=== PATIENT | male | born 1925 | race Caucasian/White ===

== ENCOUNTER 2016-09-11 22:54 | Inpatient (IN) ==
--- NOTE | 2016-09-11 23:39 | Emergency Department Note ---
Fall HPI - General Chief Complaint: Fall Stated Complaint: fall Time Seen by Provider: 09/11/16 22:58 Source: patient Mode of arrival: EMS - History of Present Illness HPI Narrative: 89-year-old male seen here earlier today for referral from Dr. Marie to increased weakness. The CT scan revealed a mass in the right lung with multilple lesions to the liver, presumably metatsis. Patient wanted to go home as well as his , as they wanted to talk to Dr. Marie tomorrow concerning a hospice discussion. They both refused admission at that time But this evening he went to use the bathroom, became lightheaded and fell. He did hit his head. There was no loss of consciousness. He has a laceration to the left lateral aspect of his scalp. There is no neck pain. Patient is alert and oriented. No neurologic signs or symptoms. There is no neck pain . 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 - Related Data Home Medications Medication Instructions Recorded Confirmed Aspirin [[place] Aspirin] 81 mg PO DAILY 01/16/15 09/09/16 Bumetanide 4 mg PO BID 01/16/15 09/09/16 Calcitriol [Rocaltrol] 0.25 mcg PO DAILY 01/16/15 09/09/16 Carvedilol [Coreg] 25 mg PO BID 01/16/15 09/09/16 Formoterol Fumarate [Foradil] 12 mcg IH BID 01/16/15 09/09/16 Isosorbide Mononitrate [Isosorbide 60 mg PO BID 01/16/15 09/09/16 Mononitrate ER] Potassium Chloride 10 meq PO BID 01/16/15 09/09/16 Pravastatin [Pravachol] 40 mg PO HS 01/16/15 09/09/16 Terazosin [Hytrin] 5 mg PO DAILY 01/16/15 09/09/16 Tiotropium [place] [Spiriva] 18 mcg INH DAILY 01/16/15 09/09/16 allopurinol 300 mg tablet 300 mg PO ONCE tab 07/27/15 09/09/16 calcium citrate 250 mg 1 tab PO QDAY tab 07/27/15 09/09/16 calcium-vitamin D3 200 unit tablet cholecalciferol (vitamin D3) 2,000 2,000 unit PO QDAY 07/27/15 09/09/16 unit tablet clobetasol 0.05 % topical ointment 1 applic TOPICAL DIRECTED PRN g 07/27/15 09/09/16 finasteride 5 mg tablet 5 mg PO QDAY 07/27/15 09/09/16 folic acid PO 07/27/15 09/09/16 multivitamin capsule 1 tab-cap PO QDAY 07/27/15 09/09/16 potassium chloride ER 10 mEq 10 meq PO BID 07/27/15 09/09/16 tablet,extended release eplerenone 50 mg tablet 50 mg PO QDAY 12/01/15 09/09/16 Previous Rx's Medication Instructions Recorded clotrimazole 1 % topical cream 1 applic TOPICAL BID #24 g 07/28/15 traMADol [Ultram] 50 mg PO Q4-6HP PRN #14 tab 02/28/16 Allergies Allergy/AdvReac Type Severity Reaction Status Date / Time cefdinir Allergy Mild Rash Verified 09/11/16 11:46 Fall PMH - Past Medical History Medical history: Reports: cancer (cLL), COPD, coronary artery disease, diabetes , hyperlipidemia, hypertension, myocardial infarction, osteoporosis, renal disease, valvular heart disease, other (Diverticulitis, mitral regurgitation, gout) - Social History Alcohol use: Reports: Rarely Drug use: Reports: none Physical Exam - General Limitations: no limitations Course Vital Signs Temperature 97.6 F 09/11/16 22:55 Pulse Rate 81 09/11/16 22:55 Respiratory Rate 20 09/11/16 22:55 Blood Pressure 130/73 09/11/16 22:55 Pulse Oximetry (%) 92 09/11/16 22:55 Temperature 97.6 F 09/11/16 22:55 Pulse Rate 94 H 09/11/16 23:56 Respiratory Rate 20 09/11/16 22:55 Blood Pressure 94/56 09/11/16 23:56 Pulse Oximetry (%) 96 09/11/16 23:56 Procedures - Laceration Laceration 1 Site: scalp Side (If applicable): left Description: linear Depth: simple, single layer Local Anesthetic: lidocaine 1% Skin layer closed with: nylon Size: 5-0 Number of sutures: 5 Technique: simple, interrupted Fall - [facility] Narrative Medical decision making narrative: FAMILY IS HERE AND HAVE REQUESTED COMFORT CARE ONLY . DR HERNANDEZ CONTACTED AND PATIENT WILL BE PUT IN OBSERVATION AND COMFORT CARE - Lab Data Result diagrams: 09/11/16 23:30 Lab Results 09/11/16 09/11/16 09/11/16 Range/Units 23:30 23:30 23:30 WBC 19.9 H (4.5-11.0) K/mcL RBC 2.78 L (4.50-5.90) M/mcL Hgb 10.1 L (13.5-16.5) g/dL Hct 32.0 L (41.0-55.0) % POC Hct 35.0 L (41.0-55.0) % MCV 115.0 H (80.0-100.0) fL MCH 36.5 H (26.0-34.0) pg MCHC 31.7 (31.0-36.0) g/dL RDW 17.4 H (11.5-14.5) % Plt Count 190 (140-440) K/mcL MPV 9.8 (7.4-10.4) fL Gran % 45.5 (38.0-78.0) % Lymph % (Auto) 48.1 (15.5-49.0) % Lyman % (Auto) 3.5 (1.0-12.0) % Eos % (Auto) 2.6 (0.0-7.0) % Baso % (Auto) 0.3 (0.0-2.0) % Gran # 9.1 H (1.8-8.0) K/mcL Lymph # 9.6 H (1.5-4.8) K/mcL Lyman # 0.7 (0.1-0.9) K/mcL Eos # 0.5 (0.0-0.7) K/mcL Baso # 0.1 (0.0-0.3) K/mcL POC Sodium 137 (133-145) mmol/L POC Potassium 4.3 (3.3-5.1) mmol/L POC Chloride 96 (96-108) mmol/L POC Total CO2 29 (22-30) mmol/L POC BUN 104 H* (8-23) mg/dl POC Creatinine 2.6 H (0.7-1.2) mg/dl POC Glucose 103 (70-105) mg/dL POC WB Ioniz Calcium 1.46 H (1.16-1.32) mmol/L Troponin T 0.28 H* (0-0.03) ng/ml Disposition Clinical Impression: Lung mass, Liver mass Disposition: Xfer As Outpt/Obs ([facility]) Condition: Critical Referrals: Lupe Marie MD [Primary Care Provider] -
[2016-09-12 00:09] LABS: Basophils # (Auto) 0.1 K/mcL (0.0-0.3); Basophils % (Auto) 0.3 % (0.0-2.0); Eosinophils # (Auto) 0.5 K/mcL (0.0-0.7); Eosinophils % (Auto) 2.6 % (0.0-7.0); Granulocytes % (Auto) 45.5 % (38.0-78.0); Lymphocytes # (Auto) 9.6 K/mcL (1.5-4.8); Lymphocytes % (Auto) 48.1 % (15.5-49.0); Mean Corpuscular HGB Conc 31.7 g/dL (31.0-36.0); Mean Corpuscular Hemoglobin 36.5 pg (26.0-34.0); Monocytes # (Auto) 0.7 K/mcL (0.1-0.9); Monocytes % (Auto) 3.5 % (1.0-12.0); Platelet Count 190 K/mcL (140-440); RBC 2.78 M/mcL (4.50-5.90); Red Cell Distribution Width 17.4 % (11.5-14.5)
[2016-09-12] MEDS ORDERED: 0.9 % SODIUM CHLORIDE 1,000 ML IV ONE (00:35)
[2016-09-12] MEDS ORDERED: ONDANSETRON 4 MG/2 ML VIAL IV PRN ×2 (00:42→14:34)
--- NOTE | 2016-09-12 06:00 | Cat Scan Report ---
CLINICAL INFORMATION: Fell. Head injury. COMPARISON: 02/28/2016 TECHNIQUE: Axial noncontrast-enhanced images through the brain. FINDINGS: No acute intracranial hemorrhage. No subdural hematoma. No subarachnoid hemorrhage. No epidural hematoma. No intra-axial hemorrhage. No focal intra-axial attenuation abnormality or localized mass effect. No midline shift. There is mild white matter abnormality most consistent with small vessel ischemic change. There is age appropriate cerebral atrophy. Brainstem and cerebellum are negative. Basilar cisterns are normal. No calvarial fracture. There is sinus disease with near complete opacification of the maxillary sinuses. There is mucosal thickening within sphenoid and ethmoid sinuses. Sinus disease was present previously. Examination was initially interpreted by [facility]. No discrepancy. IMPRESSION: 1. No acute intracranial abnormalities. No intracranial hemorrhage. 2. Sinus disease. Interpreted and Authenticated by: Ramone Diaz 09/12/16
--- NOTE | 2016-09-12 11:31 | Internal Med Progress Note ---
Medical - PN: Subj Patient information: Note initiated : 09/12/16 at 11:31 am Service Date, if different from initiated Date: [] Patient: Julius Damico 89 y/o M admitted on 09/12/16 for fall. Chief Complaint: [] Interval history: 09/12- -year-old with history of coronary artery disease/congestive heart failure,leukemia admitted with weakness and falls,acute renal failure, elevated troponins. However patient does not want any further interventions clearly understand the risks including . 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 patient and family contemplating on hospice. Primary care physician coordinating hospice. Extended discussion with patient, his and daughter around 1 PM. Family contemplating hospice. Patient restarted on home meds. Patient worried about decubitus ulcers. Wound care consulted. Restarted on home meds. - Constitutional Vitals: Vital Signs Temp Pulse Resp BP Pulse Ox 98.1 F 93 H 18 98/59 95 09/12/16 07:51 09/12/16 07:51 09/12/16 07:51 09/12/16 07:51 09/12/16 07:51 Period Temp Pulse Resp BP Sys/Arana Pulse Ox Last 24 Hr 97.3 F-98.1 F 93-101 18-20 97-118/56-67 95-98 Intake and Output 09/11/16 09/12/16 09/12/16 21:59 05:59 13:59 Intake Total 1000 / 1000 Output Total 150 / 150 100 / 100 Balance 850 / 850 -100 / -100 Weight 213 lb Intake & Output: Intake & Output 09/11/16 09/12/16 09/12/16 21:59 05:59 13:59 Intake Total 1000 / 1000 Output Total 150 / 150 100 / 100 Balance 850 / 850 -100 / -100 Weight 213 lb Intake: IV 1000 / 1000 Sodium Chloride 0.9% 1, 1000 / 1000 000 ml @ Wide Open IV BOLUS ONE Rx#:[id number] Output: Void Amount 150 / 150 100 / 100 General appearance: cooperative, no acute distress Exam: alert oriented Nonlabored breathing lymphedema decubitus sores Medical - PN: Obj Da - Labs CBC & Chem 7: 09/11/16 23:30 Meds: Medications Ondansetron HCl (Zofran) 4 mg IV Q4HP PRN PRN Reason: Nausea And Vomiting Medical - PN: A/P - Time Spent With Patient Total time spent is greater than 50% in coordination of care (as documented) at patient's floor/unit and/or counseling patient: 25 - 35 minutes (1) Lung mass Status: Acute Assessment and plan: * fall and weakness-multifactorial. Continue physical therapy * Lung mass iwith liver metastasis-family contemplating hospice in light of underlying comorbidities * elevated troponins-patient does not want further intervention. Understands the risk of * Acute kidney injury-BUN over 100 * Decubitus sore-wound care consulted * History of NYHA class III systolic heart failure continue prior home medications ncluding nitrates/statin/beta lavern/eplerenone/aspirin * BPH on finasteride * history of gout on allopurinol Plan * Physical therapy * Goals of care coordination * Await discussion with primary care physician for initiation of hospice * Restart prior home medications Current Visit: Yes Medical - PN: Qual - VTE Deep Vein Thrombosis/Pulmonary Embolism Present on Admission: No
--- NOTE | 2016-09-12 12:38 | History and Physical Report ---
DATE OF ADMISSION: 09/12/2016 PRIMARY CARE PHYSICIAN: Lupe Marie MD. UROLOGIST: Dustin Nuñez MD. REASON FOR ADMISSION: Fall, metastatic lung cancer, weakness, inability to take care of self and likely coordination of Hospice. HISTORY OF CHIEF COMPLAINT: This is an 89-year-old who came a second time to [facility], initially for weakness and a referral from primary care physician for initiation of Hospice. The patient was recently diagnosed with metastatic tumor, likely lung primary. The patient and family were contemplating on Hospice. However, the patient was significantly weak and fell while on his way to the bathroom and subsequently was brought in due to family's inability to take care of him. He also sustained a significant bruise on his scalp, along with head laceration. He had a head CT done which was unremarkable for intracranial process. CT scan of the abdomen and pelvis revealed spiculated right lower lobe lung mass consistent with primary lung cancer, along with basilar nodules and disseminated metastases throughout the liver. Hospitalist Service was consulted for admitting patient for observation in light of significant weakness and high-risk decompensation. At the time of examination, the patient is alert. He is aware of his CT findings, and he wishes to continue coordination for Hospice and let nature take its course. He does not wish to pursue any further interventions, including biopsy or evaluation. Other than that, the patient denies headache, photophobia, lightheadedness, dizziness, urinary issues. REVIEW OF SYSTEMS: Ten-point review of system was performed and was unremarkable other than above. PAST MEDICAL HISTORY: 1. Hyperlipidemia. 2. COPD. 3. Hypertension. 4. Coronary artery disease. 5. Gout. 6. Degenerative joint disease. 7. New diagnosis of metastatic tumor, likely primary lung. PAST SURGICAL HISTORY: 1. Coronary artery stent in 2007. 2. CABG in 1991. 3. Cholecystectomy. CURRENT MEDICATIONS: 1. Allopurinol 300 mg. 2. Aspirin 81 mg. 4. Coreg 25 mg. 5. Eplerenone 50 mg. 6. Finasteride 5 mg. 7. Folic acid daily. 8. Isosorbide 60 mg. 10. Potassium 10 mEq. 11. Terazosin 5 mg. 12. Pravastatin 40 mg. ALLERGIES: Known to [facility]. SOCIAL HISTORY: The patient is and lives with his . 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 He has five kids. He is a former smoker, drinks one to two drinks a day. No history of substance abuse. FAMILY HISTORY: Significant for CVA in father. PHYSICAL EXAMINATION: GENERAL: The patient is alert, oriented, in moderate distress. VITAL SIGNS: BMI 28.9. Height 6 feet. HEENT: Significant for left-sided scalp laceration, otherwise no ear or nose discharge. Oral cavity dry. NECK: No lymphadenopathy. HEART: S1, S2, regular rhythm. ESM grade 1. Diminished breath sounds at bases. ABDOMEN: Soft and nontender. LOWER EXTREMITIES: Reveals no cyanosis but significant lymphedema, stasis changes. SKIN: Bruising, along with laceration of scalp as described above. PSYCH: Alert and cooperative. No anxiety. NEURO: Nonfocal, moving all four extremities. LABS AND IMAGING: White count 19.9, hemoglobin 10.1, and platelets 190. BUN 104, creatinine 2.6, troponin 0.28. ASSESSMENT AND PLAN: An 89-year-old with new onset of metastatic cancer, along with acute renal failure, elevated troponins, requesting Hospice and no further management intervention, will be admitted for observation. 1. New onset of metastatic cancer, unknown primary, likely lung. 2. Falls. 3. Elevated troponins with history of coronary artery disease. 4. Acute renal failure with significant uremia of 104. PLAN: 1. Admit as observation. 2. Likely initiation of Hospice in the setting of underlying comorbidities and new onset of metastatic tumor. Patient does not want any further interventions. He clearly understands the risk of in light of untreated elevated troponins, acute renal failure. AA:carter Job ID: [id number] Doc ID: [id number] David Marie MD [facility]
[2016-09-12] MEDS ORDERED: CLOBETASOL PROP OINT 0.05% TUBE 15GM TOPICAL PRN ×2 (13:37→14:34)
[2016-09-12] MEDS ORDERED: traMADol 50 MG TABLET PO PRN ×2 (13:37→14:34)
[2016-09-12] MEDS ORDERED: ASPIRIN 81 MG PO SCH (13:45)
[2016-09-12] MEDS ORDERED: CARVEDILOL 12.5 MG TABLET PO SCH (17:30)
[2016-09-12] MEDS ORDERED: POTASSIUM CHLORIDE 10 MEQ TABLET PO SCH (17:30)
[2016-09-12] MEDS: CARVEDILOL 12.5 MG TABLET PO SCH (18:02)
[2016-09-12] MEDS: POTASSIUM CHLORIDE 10 MEQ TABLET PO SCH (18:02)
[2016-09-12] MEDS: ISOSORBIDE MONONITRATE 60 MG TAB.XL.24H PO SCH (20:08)
[2016-09-12] MEDS: SIMVASTATIN 20 MG TABLET PO SCH (20:08)
[2016-09-12] MEDS ORDERED: CLOTRIMAZOLE CRM 1% 1 DOSE TUBE TOPICAL SCH (21:00)
[2016-09-12] MEDS ORDERED: ISOSORBIDE MONONITRATE 60 MG TAB.XL.24H PO SCH (21:00)
[2016-09-12] MEDS ORDERED: NON FORMULARY MEDICATION 1 DOSE MISCELL (Potassium Chloride [Potassium Chloride] 10 MEQ) PO SCH (21:00)
[2016-09-12] MEDS ORDERED: SIMVASTATIN 20 MG TABLET PO SCH (21:00)
[2016-09-12] MEDS: CLOTRIMAZOLE CRM 1% 1 DOSE TUBE TOPICAL SCH (22:33)
[2016-09-13] MEDS: POTASSIUM CHLORIDE 10 MEQ TABLET PO SCH ×2 (07:32→17:42)
[2016-09-13] MEDS: CARVEDILOL 12.5 MG TABLET PO SCH ×2 (07:32→17:41)
[2016-09-13] MEDS ORDERED: CALCITRIOL 0.25 MCG CAPSULE PO SCH (09:00)
[2016-09-13] MEDS ORDERED: FOLIC ACID 1 MG TABLET PO SCH (09:00)
[2016-09-13] MEDS ORDERED: ALLOPURINOL 300 MG TABLET PO SCH (09:00)
[2016-09-13] MEDS ORDERED: MULTIVIT,THER IRON,CA,FA & MIN 1 TABLET PO SCH (09:00)
[2016-09-13] MEDS ORDERED: TORSEMIDE 10 MG TABLET PO SCH (09:00)
[2016-09-13] MEDS ORDERED: TIOTROPIUM BROMIDE 18 MCG INHALANT INH SCH (09:00)
[2016-09-13] MEDS ORDERED: FINASTERIDE 5 MG TABLET PO SCH (09:00)
[2016-09-13] MEDS ORDERED: CALCIUM W/VIT D3 500 MG TABLET PO SCH ×2 (09:00)
[2016-09-13] MEDS ORDERED: VITAMIN D3 1,000 UNIT TABLET PO SCH (09:00)
[2016-09-13] MEDS ORDERED: TORSEMIDE 100 MG PO SCH (09:00)
[2016-09-13] MEDS: CLOTRIMAZOLE CRM 1% 1 DOSE TUBE TOPICAL SCH ×2 (09:44→20:56)
[2016-09-13] MEDS: TIOTROPIUM BROMIDE 18 MCG INHALANT INH SCH (09:45)
[2016-09-13] MEDS: FINASTERIDE 5 MG TABLET PO SCH (09:53)
[2016-09-13] MEDS: CALCITRIOL 0.25 MCG CAPSULE PO SCH (09:53)
[2016-09-13] MEDS: ALLOPURINOL 300 MG TABLET PO SCH (09:53)
[2016-09-13] MEDS: MULTIVIT,THER IRON,CA,FA & MIN 1 TABLET PO SCH (09:54)
[2016-09-13] MEDS: ASPIRIN 81 MG TAB.CHEW PO SCH (09:56)
[2016-09-13] MEDS: VITAMIN D3 1,000 UNIT TABLET PO SCH (09:56)
[2016-09-13] MEDS: FOLIC ACID 1 MG TABLET PO SCH (10:11)
[2016-09-13] MEDS: ISOSORBIDE MONONITRATE 60 MG TAB.XL.24H PO SCH (10:15)
[2016-09-13] MEDS: CALCIUM W/VIT D3 500 MG TABLET PO SCH (10:21)
--- NOTE | 2016-09-13 11:12 | Internal Med Progress Note ---
Medical - PN: Subj Patient information: Note initiated : 09/13/16 at 11:09 am Service Date, if different from initiated Date: [] Patient: Julius Damico 89 y/o M admitted on 09/12/16 for Fall/Lung Mass, Comfort Care. Chief Complaint: [] Interval history: 09/12- 89-year-old with history of coronary artery disease/congestive heart failure,leukemia admitted with weakness and falls,acute renal failure, elevated troponins. However patient does not want any further interventions clearly understand the risks including . 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 patient and family contemplating on hospice. Primary care physician coordinating hospice. Extended discussion with patient, his and daughter around 1 PM. Family contemplating hospice. Patient restarted on home meds. Patient worried about decubitus ulcers. Wound care consulted. Restarted on home meds. ADDENDUM- patient and his family had an extended discussion with primary care physician dr. Lupe Marie. Patient agrees to transfer to SNF for continued rehabilitation/end-of-life care/transition to hospice 09/13-All further blood work discontinued. Patient tarted on home medications for his active medical issues. denies any abdominal discomfort headache pain. denies dizziness or lightheadedness. No overnight events. No concerns per staff - Constitutional Vitals: Vital Signs Temp Pulse Resp BP Pulse Ox 97.1 F 87 14 114/61 95 09/13/16 08:00 09/13/16 08:00 09/13/16 08:00 09/13/16 08:00 09/13/16 08:00 Period Temp Pulse Resp BP Sys/Arana Pulse Ox Last 24 Hr 97.1 F-98.1 F 82-93 14-20 103-122/52-65 94-97 Intake and Output 09/12/16 09/13/16 09/13/16 21:59 05:59 13:59 Intake Total 700 / 700 200 / 200 660 / 660 Output Total 75 / 75 100 / 100 125 / 125 Balance 625 / 625 100 / 100 535 / 535 Weight 210 lb 210 lb Patient Weight 09/14/16 05:59 Weight 210 lb Intake & Output: Intake & Output 09/12/16 09/13/16 09/13/16 21:59 05:59 13:59 Intake Total 700 / 700 200 / 200 660 / 660 Output Total 75 / 75 100 / 100 125 / 125 Balance 625 / 625 100 / 100 535 / 535 Weight 210 lb 210 lb Intake: Oral 700 / 700 200 / 200 660 / 660 Output: Void Amount 75 / 75 100 / 100 125 / 125 Other: Meal Dinner Breakfast Percent of Meal Consumed 100% 75% Feeding Ability Independent Independent # Voids 1 # Bowel Movements 1 1 General appearance: cooperative, no acute distress Medical - PN: Obj Da - Labs CBC & Chem 7: 09/11/16 23:30 Meds: Medications Allopurinol (Zylopriim) 300 mg PO DAILY [facility] Last Admin: 09/13/16 09:53 Dose: 300 mg Aspirin (Aspirin) 81 mg PO MoWeFr@0900 [facility] Last Admin: 09/13/16 09:56 Dose: 81 mg Calcitriol (Rocaltrol) 0.25 mcg PO DAILY [facility] Last Admin: 09/13/16 09:53 Dose: 0.25 mcg Calcium/Vitamin D (Calcium W/Vit D3) 500 mg PO DAILY [facility] Last Admin: 09/13/16 10:21 Dose: 500 mg [facility] Admin: 09/13/16 07:32 Dose: 25 mg Clobetasol Propionate (Temovate Oint 0.05%) 1 dose TOPICAL DAILYP PRN PRN Reason: Skin Irritation Clotrimazole (Mycelex Crm 1%) 1 dose TOPICAL BID [facility] Last Admin: 09/13/16 09:44 Dose: Not Given Finasteride (Proscar) 5 mg PO QDAY [facility] Last Admin: 09/13/16 09:53 Dose: 5 mg Folic Acid (Folic Acid) 1 mg PO DAILY [facility] Last Admin: 09/13/16 10:11 Dose: 1 mg Iron Carb/Multivit/[place]/Folic Acid (Multivitamin W/Minerals) 1 tab PO DAILY [facility] Last Admin: 09/13/16 09:54 Dose: 1 tab Isosorbide Mononitrate (Imdur) 60 mg PO BID [facility] Last Admin: 09/13/16 10:15 Dose: Not Given Ondansetron HCl (Zofran) 4 mg IV Q4HP PRN PRN Reason: Nausea And Vomiting Eplerenone [Inspra] (50 Mg Tab) 1 dose PO DAILY [facility] Last Admin: 09/13/16 09:45 Dose: Not Given Potassium Chloride (Kdur) 10 meq PO BIDCC [facility] Last Admin: 09/13/16 07:32 Dose: 10 meq Simvastatin (Zocor) 20 mg PO HS [facility] Last Admin: 09/12/16 20:08 Dose: 20 mg Tiotropium [place] (Spiriva) 18 mcg INH DAILY [facility] Last Admin: 09/13/16 09:45 Dose: Not Given Torsemide (Demadex) 100 mg PO DAILY [facility] Last Admin: 09/13/16 10:06 Dose: Not Given Tramadol HCl (Ultram) 50 mg PO Q4-6HP PRN PRN Reason: Pain Vitamin D (Vitamin D3) 2,000 unit PO DAILY [facility] Last Admin: 09/13/16 09:56 Dose: 2,000 unit Medical - PN: A/P - Time Spent With Patient Total time spent is greater than 50% in coordination of care (as documented) at patient's floor/unit and/or counseling patient: 15 - 24 minutes (1) Lung mass Status: Acute Assessment and plan: * Fall and weakness-multifactorial. daily physical therapy. SNF transfer * new onset Lung mass with liver metastasis-family wishes to initiate hospice. Patient be transferred to care facility on Fridayfor continued end of life care * Elevated troponins-patient and family does not want further intervention. Understands the risk of . serial checks performed. continue prior Home medication underlying ischemic cardiomyopathy-aspirin/Coreg/eplerenone/statin * Acute kidney injury-BUN over 100. discontinue repeat labs * Decubitus sore-wound care consulted * History of NYHA class III systolic heart failure continue prior home medications ncluding nitrates/statin/beta lavern/eplerenone/aspirin * BPH on finasteride * history of gout on allopurinol Plan * SNF transfer coordination by case management * continue management of pre-existing medical issues * all treatment directed towards symptom and pain management Current Visit: Yes Medical - PN: Qual - VTE Deep Vein Thrombosis/Pulmonary Embolism Present on Admission: No
[2016-09-13] MEDS: ISOSORBIDE MONONITRATE 30 MG TAB.XL.24H PO SCH ×2 (14:48→20:56)
[2016-09-13] MEDS: SIMVASTATIN 20 MG TABLET PO SCH (20:56)
[2016-09-14] MEDS: CALCIUM W/VIT D3 500 MG TABLET PO SCH ×2 (09:23→16:22)
[2016-09-14] MEDS: FOLIC ACID 1 MG TABLET PO SCH (09:24)
[2016-09-14] MEDS: MULTIVIT,THER IRON,CA,FA & MIN 1 TABLET PO SCH (09:24)
[2016-09-14] MEDS: CALCITRIOL 0.25 MCG CAPSULE PO SCH (09:24)
[2016-09-14] MEDS: VITAMIN D3 1,000 UNIT TABLET PO SCH ×3 (09:24→20:33)
[2016-09-14] MEDS: ALLOPURINOL 300 MG TABLET PO SCH (09:24)
[2016-09-14] MEDS: FINASTERIDE 5 MG TABLET PO SCH ×2 (09:24→13:23)
[2016-09-14] MEDS: CARVEDILOL 12.5 MG TABLET PO SCH ×2 (09:25→18:06)
[2016-09-14] MEDS: POTASSIUM CHLORIDE 10 MEQ TABLET PO SCH ×2 (09:25→18:07)
[2016-09-14] MEDS: ISOSORBIDE MONONITRATE 30 MG TAB.XL.24H PO SCH ×3 (09:26→20:34)
[2016-09-14] MEDS: CLOTRIMAZOLE CRM 1% 1 DOSE TUBE TOPICAL SCH ×3 (09:27→20:33)
[2016-09-14] MEDS: TORSEMIDE 100 MG TABLET PO SCH (09:27)
[2016-09-14] MEDS: TIOTROPIUM BROMIDE 18 MCG INHALANT INH SCH (09:27)
--- NOTE | 2016-09-14 14:48 | Internal Med Progress Note ---
Medical - PN: Subj Patient information: Note initiated : 09/14/16 at 2:48 pm Service Date, if different from initiated Date: [] Patient: Julius Damico 89 y/o M admitted on 09/12/16 for Fall/Lung Mass, Comfort Care. Chief Complaint: [] Interval history: 09/12- 89-year-old with history of coronary artery disease/congestive heart failure,leukemia admitted with weakness and falls,acute renal failure, elevated troponins. However patient does not want any further interventions clearly understand the risks including . 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 patient and family contemplating on hospice. Primary care physician coordinating hospice. Extended discussion with patient, his and daughter around 1 PM. Family contemplating hospice. Patient restarted on home meds. Patient worried about decubitus ulcers. Wound care consulted. Restarted on home meds. ADDENDUM- patient and his family had an extended discussion with primary care physician dr. Lupe Marie. Patient agrees to transfer to SNF for continued rehabilitation/end-of-life care/transition to hospice 09/13-All further blood work discontinued. Patient tarted on home medications for his active medical issues. denies any abdominal discomfort headache pain. denies dizziness or lightheadedness. No overnight events. No concerns per staff September 14: today, the patient is sitting up in a chair. He says he has only mild shortness of breath with exertion. He occasionally feels dizzy. He otherwise denies significant cough or pain.- -He was just recently diagnosed with lung cancer. He says his family does not think he should pursue any sort of treatment and he is willingto go along with them. He has not yet seen an oncologist. -he did have a fall at home,and has a scalp laceration. He denies significant pain at this time. He was admitted with elevated troponins and acute renal failure. He denies any chest pain or any dysuria. otherwise,he denies subjective fever or chills headaches sore throat or cough, chest pain or palpitations, abdominal pain, nausea or vomiting. He thinks he may have had a loose stool, but is not sure. He denies dysuria. - Constitutional Vitals: Vital Signs Temp Pulse Resp BP Pulse Ox 97.3 F 83 18 122/65 97 09/14/16 11:45 09/14/16 08:00 09/14/16 11:45 09/14/16 11:45 09/14/16 11:45 Period Temp Pulse Resp BP Sys/Arana Pulse Ox Last 24 Hr 97.3 F-98.2 F 83-85 16-20 94-122/57-65 94-97 Intake and Output 09/14/16 09/14/16 09/14/16 05:59 13:59 21:59 Intake Total 100 / 100 Output Total 725 / 725 475 / 475 Balance -625 / -625 -475 / -475 Intake & Output: Intake & Output 09/14/16 09/14/16 09/14/16 05:59 13:59 21:59 Intake Total 100 / 100 Output Total 725 / 725 475 / 475 Balance -625 / -625 -475 / -475 Intake: Oral 100 / 100 Output: Void Amount 500 / 500 475 / 475 # of times incontinent of 225 / 225 urine Other: # Voids 1 1 on exam,he is an elderly, frail-appearing,man, who is sitting up in a chair. Neck shows no obvious JVD. Cardiac exam shows regular rate and rhythm. Lung exam shows scattered crackles, without significant wheezes. There is no sensory muscle use. Abdomen: Is soft and nontender, with normal bowel sounds. Extremities: Show trace edema. Neurologic exam: The patient appears a bit forgetful, but otherwise exam is grossly nonfocal. Medical - PN: Obj Da - Labs CBC & Chem 7: 09/11/16 23:30 Labs: Initial CBC from September 11, showedwhite blood cell count of 19,000, hematocrit 32, RDW 17, 9000 granulocytes. Chemistry panel howed elevated B [place] 104, with creatinine of 2.6, ionized calcium of 1.46 Troponin was elevated at 0.28 EKG showed sinus rhythm at a rate of [address] showed no acute intracranial disease. Meds: Medications Allopurinol (Zylopriim) 300 mg PO DAILY [facility] Last Admin: 09/14/16 09:24 Dose: 300 mg Aspirin (Aspirin) 81 mg PO MoWeFr@0900 [facility] Last Admin: 09/13/16 09:56 Dose: 81 mg Calcitriol (Rocaltrol) 0.25 mcg PO DAILY [facility] Last Admin: 09/14/16 09:24 Dose: 0.25 mcg Calcium/Vitamin D (Calcium W/Vit D3) 500 mg PO DAILY [facility] Last Admin: 09/13/16 10:21 Dose: 500 mg [facility]) [facility] Last Admin: 09/14/16 09:25 Dose: Not Given Clobetasol Propionate (Temovate Oint 0.05%) 1 dose TOPICAL DAILYP PRN PRN Reason: Skin Irritation Clotrimazole (Mycelex Crm 1%) 1 dose TOPICAL BID [facility] Last Admin: 09/13/16 20:56 Dose: Not Given Finasteride (Proscar) 5 mg PO DAILY@1200 [facility] Folic Acid (Folic Acid) 1 mg PO DAILY [facility] Last Admin: 09/14/16 09:24 Dose: 1 mg Iron Carb/Multivit/[place]/Folic Acid (Multivitamin W/Minerals) 1 tab PO DAILY [facility] Last Admin: 09/14/16 09:24 Dose: 1 tab Isosorbide Mononitrate (Imdur) 30 mg PO TID [facility] Last Admin: 09/14/16 13:23 Dose: 30 mg Ondansetron HCl (Zofran) 4 mg IV Q4HP PRN PRN Reason: Nausea And Vomiting Eplerenone [Inspra] (50 Mg Tab) 1 dose PO DAILY [facility] Last Admin: 09/13/16 09:45 Dose: Not Given Torsemide 100 Mg (Tablet) 1 dose PO DAILY [facility] Last Admin: 09/14/16 09:27 Dose: 1 dose Potassium Chloride (Kdur) 10 meq [facility] Last Admin: 09/14/16 09:25 Dose: 10 meq Simvastatin (Zocor) 20 mg PO [facility] Last Admin: 09/13/16 20:56 Dose: 20 mg Tiotropium [place] (Spiriva) 18 mcg INH DAILY [facility] Last Admin: 09/14/16 09:27 Dose: 18 mcg Tramadol HCl (Ultram) 50 mg PO Q4-6HP PRN PRN Reason: Pain Vitamin D (Vitamin D3) 2,000 unit PO [facility] Medical - PN: A/P - Time Spent With Patient Total time spent is greater than 50% in coordination of care (as documented) at patient's floor/unit and/or counseling patient: 25 - 35 minutes - Narrative A/P Narrative: #1.Fall.-Patient who presents with acute renal failure and probable dehydration dizziness and fall with head trauma. he was recently diagnosed with metastatic cancer and the family is requesting no further aggressive interventions. -he has received IV fluids. But we are no longer following labs. #2. COPD. -when necessary albuterol. #3. Coronary artery disease. -the patient did present with elevated troponin, but also renal failure, which makes this less sensitive. He did not want any further cardiac evaluation. -continue aspirin, Coreg, E plan around, isosorbide pravastatin. #4. Oncology. Patient and family are declining further oncology workup at this time. #5. Disposition: Social work is discussing possible hospice referral with the patient and family. It sounds like they would like him to go to rehabilitation to see if he can get stronger. And then reconsider, returning home with hospice. #6. Acute renal failure with severe uremia. His declining aggressive management of this. #7. History of gout. Continue allopurinol if tolerated. #8. BPH. Continue Proscar and terazosin. this visit today took approximately 25 minutes, to review the patient's records , interview and examine him, review plan of care, and write orders. Medical - PN: Qual - VTE Deep Vein Thrombosis/Pulmonary Embolism Present on Admission: No
[2016-09-14] MEDS: SIMVASTATIN 20 MG TABLET PO SCH (20:33)
[2016-09-15] MEDS: POTASSIUM CHLORIDE 10 MEQ TABLET PO SCH ×2 (09:16→18:01)
[2016-09-15] MEDS: FOLIC ACID 1 MG TABLET PO SCH (09:16)
[2016-09-15] MEDS: CALCITRIOL 0.25 MCG CAPSULE PO SCH (09:17)
[2016-09-15] MEDS: CARVEDILOL 12.5 MG TABLET PO SCH ×2 (09:18→18:01)
[2016-09-15] MEDS: CALCIUM W/VIT D3 500 MG TABLET PO SCH (09:18)
[2016-09-15] MEDS: ALLOPURINOL 300 MG TABLET PO SCH (09:18)
[2016-09-15] MEDS: MULTIVIT,THER IRON,CA,FA & MIN 1 TABLET PO SCH (09:18)
[2016-09-15] MEDS: ISOSORBIDE MONONITRATE 30 MG TAB.XL.24H PO SCH ×3 (09:19→20:12)
[2016-09-15] MEDS: TORSEMIDE 100 MG TABLET PO SCH (09:19)
[2016-09-15] MEDS: TIOTROPIUM BROMIDE 18 MCG INHALANT INH SCH (09:19)
[2016-09-15] MEDS: CLOTRIMAZOLE CRM 1% 1 DOSE TUBE TOPICAL SCH ×2 (09:19→22:32)
--- NOTE | 2016-09-15 11:07 | Internal Med Progress Note ---
Medical - PN: Subj Patient information: Note initiated : 09/15/16 at 11:06 am Service Date, if different from initiated Date: [] Patient: Julius Damico 89 y/o M admitted on 09/12/16 for Fall/Lung Mass, Comfort Care. Chief Complaint: [] Interval history: 09/12- 89-year-old with history of coronary artery disease/congestive heart failure,leukemia admitted with weakness and falls,acute renal failure, elevated troponins. However patient does not want any further interventions clearly understand the risks including . 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 patient and family contemplating on hospice. Primary care physician coordinating hospice. Extended discussion with patient, his and daughter around 1 PM. Family contemplating hospice. Patient restarted on home meds. Patient worried about decubitus ulcers. Wound care consulted. Restarted on home meds. ADDENDUM- patient and his family had an extended discussion with primary care physician dr. Lupe Marie. Patient agrees to transfer to SNF for continued rehabilitation/end-of-life care/transition to hospice 09/13-All further blood work discontinued. Patient started on home medications for his active medical issues. denies any abdominal discomfort headache pain. denies dizziness or lightheadedness. No overnight events. No concerns per staff September 14: today, the patient is sitting up in a chair. He says he has only mild shortness of breath with exertion. He occasionally feels dizzy. He otherwise denies significant cough or pain.- -He was just recently diagnosed with lung cancer. He says his family does not think he should pursue any sort of treatment and he is willing to go along with them. He has not yet seen an oncologist. -he did have a fall at home,and has a scalp laceration. He denies significant pain at this time. He was admitted with elevated troponins and acute renal failure. He denies any chest pain or any dysuria. otherwise,he denies subjective fever or chills headaches sore throat or cough, chest pain or palpitations, abdominal pain, nausea or vomiting. He thinks he may have had a loose stool, but is not sure. He denies dysuria. September 15: the patient says he feels reasonably well today. He continues to have mild dyspnea with exertion, but really is only walking from the bed to the bathroom. His is with him today, and is concerned about some pain he is havingin the buttock area since his most recent fall. The patienthas not used having discomfort from lying onhis decubitus ulcer, but the says this just startedafter the fall. The patient says he is eating, but his notes he really doesn't drink very much fluids anymore. He is noticing decreased urine output. We again discussed his recent diagnosis of cancer. They have not seen an oncologist, so don't even know what possibleoptions oncology might have to offer.- -Otherwise, he denies fever or chills, chest pain or palpitations,abdominal pain , nausea or vomiting, diarrhea or constipation. -the patient would still like to consider returning home, but his says he has his disease is often enough that she feels he is at high riskto fall again, and she does not want to have to deal with that at home. - Constitutional Vitals: Vital Signs Temp Pulse Resp BP Pulse Ox 97.8 F 85 20 126/71 95 09/15/16 06:57 09/15/16 06:57 09/15/16 06:57 09/15/16 06:57 09/15/16 06:57 Period Temp Pulse Resp BP Sys/Arana Pulse Ox Last 24 Hr 97.3 F-98.4 F 83-91 16-24 94-126/56-71 95-97 Intake and Output 09/14/16 09/15/16 09/15/16 21:59 05:59 13:59 Intake Total 720 / 720 100 / 100 Output Total 750 / 750 300 / 300 Balance -30 / -30 -200 / -200 Weight 215 lb 8 oz Intake & Output: Intake & Output 09/14/16 09/15/16 09/15/16 21:59 05:59 13:59 Intake Total 720 / 720 100 / 100 Output Total 750 / 750 300 / 300 Balance -30 / -30 -200 / -200 Weight 215 lb 8 oz Intake: Oral 720 / 720 100 / 100 Output: Void Amount 750 / 750 300 / 300 Other: Meal Lunch Percent of Meal Consumed 75% Feeding Ability Independent # Voids 1 1 # Bowel Movements 1 On exam,he is sitting in his chair, and in no acute distress. he and his are working on repairing his hearing aids. Neck is supple without obvious JVD. Cardiac exam shows regular rate and rhythm. Lung exam shows somewhat decreased breath sounds, but otherwise clear. Abdomen is soft and nontender. Extremities; shows trace edema. Neurologic exam: Is grossly nonfocal. Medical - PN: Obj Da - Labs CBC & Chem 7: 09/11/16 23:30 Labs: Initial CBC from September 11, showed white blood cell count of 19,000, hematocrit 32 , RDW 17, 9000 granulocytes. Chemistry panel showed elevated BUN 104, with creatinine of 2.6, ionized calcium of 1.46 Troponin was elevated at 0.28 EKG showed sinus rhythm at a rate of [address] showed no acute intracranial disease. Meds: Medications Allopurinol (Zylopriim) 300 mg PO DAILY [facility] Last Admin: 09/15/16 09:18 Dose: 300 mg Aspirin (Aspirin) 81 mg PO MoWeFr@0900 [facility] Last Admin: 09/13/16 09:56 Dose: 81 mg Calcitriol (Rocaltrol) 0.25 mcg PO DAILY [facility] Last Admin: 09/15/16 09:17 Dose: 0.25 mcg Calcium/Vitamin D (Calcium W/Vit D3) 500 mg PO DAILY [facility] Last Admin: 09/15/16 09:18 Dose: 500 mg Carvedilol (Coreg) 25 mg PO BIDCC [facility] Last Admin: 09/15/16 09:18 Dose: Not Given Clobetasol Propionate (Temovate Oint 0.05%) 1 dose TOPICAL DAILYP PRN PRN Reason: Skin Irritation Clotrimazole (Mycelex Crm 1%) 1 dose TOPICAL BID [facility] Last Admin: 09/15/16 09:19 Dose: 1 dose Finasteride (Proscar) 5 mg PO DAILY@1200 [facility] Folic Acid (Folic Acid) 1 mg PO DAILY [facility] Last Admin: 09/15/16 09:16 Dose: 1 mg Iron Carb/Multivit/[place]/Folic Acid (Multivitamin W/Minerals) 1 tab PO DAILY [facility] Last Admin: 09/15/16 09:18 Dose: 1 tab Isosorbide Mononitrate (Imdur) 30 mg PO TID [facility] Last Admin: 09/15/16 09:19 Dose: Not Given Ondansetron HCl (Zofran) 4 mg IV Q4HP PRN PRN Reason: Nausea And Vomiting Eplerenone [Inspra] (50 Mg Tab) 1 dose PO DAILY [facility] Last Admin: 09/15/16 09:29 Dose: Not Given Torsemide 100 Mg (Tablet) 1 dose PO DAILY [facility] Last Admin: 09/15/16 09:19 Dose: 1 dose Potassium Chloride (Kdur) 10 meq PO BIDCC [facility] Last Admin: 09/15/16 09:16 Dose: 10 meq Simvastatin (Zocor) 20 mg PO HS [facility] Last Admin: 09/14/16 20:33 Dose: 20 mg Tiotropium [place] (Spiriva) 18 mcg INH DAILY [facility] Last Admin: 09/15/16 09:19 Dose: 18 mcg Tramadol HCl (Ultram) 50 mg PO Q4-6HP PRN PRN Reason: Pain Vitamin D (Vitamin D3) 2,000 unit PO [facility] Last Admin: 09/14/16 20:33 Dose: 2,000 unit Medical - PN: A/P - Time Spent With Patient Total time spent is greater than 50% in coordination of care (as documented) at patient's floor/unit and/or counseling patient: 25 - 35 minutes - Narrative A/P Narrative: #1.Fall.-Patient who presents with acute renal failure and probable dehydration dizziness and fall with head trauma. he was recently diagnosed with metastatic cancer and the family is requesting no further aggressive interventions. -he has received IV fluids. But we are no longer following labs. -he is afraid to take him home if he will fall again, so the plan is for him to go to rehabilitation tomorrow to see if he can have some strengthening. We had a long discussion about how being dehydrated is making his dizziness worse, and that he should really should consider pushing himself to drink at least 6-8 glasses of fluids per day. #2. COPD. -when necessary albuterol. #3. Coronary artery disease. -the patient did present with elevated troponin, but also renal failure, which makes this less sensitive. He did not want any further cardiac evaluation. -continue aspirin, Coreg, isosorbide , pravastatin. #4. Oncology. -Recent diagnosisof metastatic lung cancer. I had a fairly prolonged discussion with the patient and his this morning,and explained that they may want to at least meet with our oncologist just to see if there are any options for palliative care. After discussing, the thinks she would like to meet with an oncologist for a consult at some point. #5. Disposition: Social work is discussing possible hospice referral with the patient and family. It sounds like they would like him to go to rehabilitation to see if he can get stronger. And then reconsider, returning home with hospice. #6. Acute renal failure with severe uremia. His declining aggressive management of this. #7. History of gout. Continue allopurinol if tolerated. #8. BPH. Continue Proscar and terazosin. this visit today took approximately 25 minutes, to review the patient's records , interview and examine him, review options with the patient and his and write orders. Medical - PN: Qual - VTE Deep Vein Thrombosis/Pulmonary Embolism Present on Admission: No
[2016-09-15] MEDS ORDERED: FINASTERIDE 5 MG TABLET PO SCH (12:00)
[2016-09-15] MEDS: SIMVASTATIN 20 MG TABLET PO SCH (20:11)
[2016-09-15] MEDS: VITAMIN D3 1,000 UNIT TABLET PO SCH (20:11)
[2016-09-16] MEDS: CARVEDILOL 12.5 MG TABLET PO SCH (08:36)
[2016-09-16] MEDS: TORSEMIDE 100 MG TABLET PO SCH (08:37)
[2016-09-16] MEDS: POTASSIUM CHLORIDE 10 MEQ TABLET PO SCH (08:37)
[2016-09-16] MEDS: ASPIRIN 81 MG TAB.CHEW PO SCH (08:38)
[2016-09-16] MEDS: ISOSORBIDE MONONITRATE 30 MG TAB.XL.24H PO SCH (08:39)
[2016-09-16] MEDS: FOLIC ACID 1 MG TABLET PO SCH (08:39)
[2016-09-16] MEDS: CALCIUM W/VIT D3 500 MG TABLET PO SCH (08:39)
[2016-09-16] MEDS: MULTIVIT,THER IRON,CA,FA & MIN 1 TABLET PO SCH (08:40)
[2016-09-16] MEDS: CLOTRIMAZOLE CRM 1% 1 DOSE TUBE TOPICAL SCH (08:40)
[2016-09-16] MEDS: CALCITRIOL 0.25 MCG CAPSULE PO SCH (08:41)
[2016-09-16] MEDS: ALLOPURINOL 300 MG TABLET PO SCH (08:42)
--- NOTE | 2016-09-16 09:40 | Discharge Summary ---
Medical - DS: Prov Patient information: Note initiated : 09/16/16 at 9:32 am Service Date, if different from initiated Date: [] Patient: Julius Damico 89 y/o M admitted on 09/12/16 for Fall/Lung Mass, Comfort Care. Chief Complaint: [] Date of admission: 09/12/16 14:27 Discharge date: 09/16/16 Primary care physician: Lupe Marie Admitting clinician: David Gastelum Attending physician on discharge: Renata Riley Medical - DS: Meds - Discharge Medications Prescriptions: Allopurinol [Zylopriim] 100 mg PO ONCE #1 tab Active and Home Medications: discharge medications: Allopurinol 100 mg daily Aspirin 81 mg daily Calcitriol 0.25 mg daily Calcium with D5 100 mg daily Coreg 25 mg twice a day Temovate ointment topically twice a day when necessary Clotrimazole cream 1% cream topically twice a day when necessary inspra 50 mg tab 1 daily Proscar 5 mg daily Folate 1 mg daily Multivitamin with minerals daily Isosorbidemononitrate 30 mg 3 times a day Zofran 4 mg sublingual when necessary Potassium chloride 10 mEq twice a day Simvastatin 20 mg daily at bedtime Spiriva inhaler1 inhalation daily Torsemide 100 mg daily Tramadol 50 mg every 4-6 hours when necessary pain Vitamin D 2000 units daily at bedtime Home Medications Aspirin [[place] Aspirin] 81 mg PO 3XW 01/16/15 [History Confirmed 09/12/16 Last Taken 09/11/16 08:00 81 mg.] Calcitriol [Rocaltrol] 0.25 mcg PO DAILY 01/16/15 [History Confirmed 09/12/16 Last Taken 09/11/16 09:00 0.25 mg.] Carvedilol [Coreg] 25 mg PO BID 01/16/15 [History Confirmed 09/12/16 Last Taken 09/11/16 17:00 25 mg.] Potassium Chloride 10 meq PO BID 01/16/15 [History Confirmed 09/12/16 Last Taken 09/11/16 09:00 10 MEQ] Pravastatin [Pravachol] 40 mg PO HS 01/16/15 [History Confirmed 09/12/16 Last Taken 09/11/16 21:00 40 mg.] Tiotropium [place] [Spiriva] 18 mcg INH DAILY 01/16/15 [History Confirmed Last Taken 09/11/16 08:00] allopurinol 300 mg tablet 300 mg PO ONCE tab 07/27/15 [History Confirmed Last Taken 09/11/16 08:00] calcium citrate 250 mg calcium-vitamin D3 200 unit tablet 1 tab PO QDAY tab [History Confirmed 09/12/16 Last Taken 09/11/16 08:00 1 tab] cholecalciferol (vitamin D3) 2,000 unit tablet 2,000 unit PO QDAY 07/27/15 [ History Confirmed 09/12/16 Last Taken 09/11/16 21:00 2000 units] clobetasol 0.05 % topical ointment 1 applic TOPICAL DIRECTED PRN g 07/27/15 [History Confirmed 09/12/16 Last Taken Unknown] finasteride 5 mg tablet 5 mg PO QDAY 07/27/15 [History Confirmed 09/12/16 Last Taken 09/11/16 12:00 5 mg.] folic acid 1 mg PO DAILY 07/27/15 [History Confirmed 09/12/16 Last Taken 08:00] multivitamin capsule 1 tab-cap PO QDAY 07/27/15 [History Confirmed 09/12/16 Last Taken 09/11/16 21:00 1 tab] potassium chloride ER 10 mEq tablet,extended release 10 meq PO BID 07/27/15 [ History Confirmed 09/12/16 Last Taken 09/11/16 10 meq] clotrimazole 1 % topical cream 1 applic TOPICAL BID #24 g 07/28/15 [Rx Confirmed 09/12/16 Last Taken Unknown] eplerenone 50 mg tablet 50 mg PO QDAY 12/01/15 [History Confirmed 09/12/16 Last Taken 09/11/16 08:00 50 mg.] traMADol [Ultram] 50 mg PO Q4-6HP PRN #14 tab 02/28/16 [Rx Confirmed 09/12/16 Last Taken Unknown] Torsemide 100 mg PO DAILY 09/12/16 [History Confirmed 09/12/16 Last Taken 09:00] Isosorbide Mononitrate [Imdur] 30 mg PO TID 09/13/16 [History Confirmed Last Taken 09/12/16 08:00] Medical - DS: Hosp Hospital course: Mr. Damico is a 89 year old male september 16, 2016: hospital course: this 89-year-old man was admitted with recurrent falls and weakness, including head traumaand bruising around the sacral area. He had recently been diagnosed with metastatic lung cancer. On presentation to the emergency room, he was clearly in renal failure. troponins were elevated, although these were difficult to interpret in the setting of renal failure. -he declined transfer to another facility to deal with his heart issues givenhis underlying cancer. -He does initially said they would decline any treatment for the lung cancer but now ay they would be willing to meet with an oncologist onceto review any possible palliative care options. -because they were leaning towards hospice, and no lab draws were followed during his stay, at the patient's request. -the patient continues to haverather poor intakeof oral fluids but otherwise is eating fairly well. He has been able to stand and walk a few steps with a walker. His is very concernedabout his episodes of dizzinessand recent falls and he is therefore being transferredto rehabilitation today, to work on strengthening. The patient's ultimate goal is to return home with his . - He should also be assessed for possible hospice care while at the nursing facility. Today,the patient feels his appetite is reasonable. His says he is drinking a little bit more fluid but not anywhere near 6 glasses a day. He says he just is not thirsty. His reports he still has some neck stiffness and soreness of his sacral area since his fall. We discussed this yesterday, and he declined any x-rays. he continues to have a mild cough, mainly in the morning. He otherwise denies fever or chills, headaches or dizziness chest pain or palpitations, shortness of breath, abdominal pain, nausea or vomiting. He has had some loose stools. He denies dysuria. previous notes: 09/12- -year-old with history of coronary artery disease/congestive heart failure,leukemia admitted with weakness and falls,acute renal failure, elevated troponins. However patient does not want any further interventions clearly understand the risks including . 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 patient and family contemplating on hospice. Primary care physician coordinating hospice. Extended discussion with patient, his and daughter around 1 PM. Family contemplating hospice. Patient restarted on home meds. Patient worried about decubitus ulcers. Wound care consulted. Restarted on home meds. ADDENDUM- patient and his family had an extended discussion with primary care physician dr. Lupe Marie. Patient agrees to transfer to SNF for continued rehabilitation/end-of-life care/transition to hospice. 09/13-All further blood work discontinued. Patient started on home medications for his active medical issues. denies any abdominal discomfort headache pain. denies dizziness or lightheadedness. No overnight events. No concerns per staff September 14: today, the patient is sitting up in a chair. He says he has only mild shortness of breath with exertion. He occasionally feels dizzy. He otherwise denies significant cough or pain.- -He was just recently diagnosed with lung cancer. He says his family does not think he should pursue any sort of treatment and he is willing to go along with them. He has not yet seen an oncologist. -he did have a fall at home,and has a scalp laceration. He denies significant pain at this time. He was admitted with elevated troponins and acute renal failure. He denies any chest pain or any dysuria. otherwise,he denies subjective fever or chills headaches sore throat or cough, chest pain or palpitations, abdominal pain, nausea or vomiting. He thinks he may have had a loose stool, but is not sure. He denies dysuria. September 15: the patient says he feels reasonably well today. He continues to have mild dyspnea with exertion, but really is only walking from the bed to the bathroom. His is with him today, and is concerned about some pain he is havingin the buttock area since his most recent fall. The patienthas not used having discomfort from lying onhis decubitus ulcer, but the says this just startedafter the fall. The patient says he is eating, but his notes he really doesn't drink very much fluids anymore. He is noticing decreased urine output. We again discussed his recent diagnosis of cancer. They have not seen an oncologist, so don't even know what possibleoptions oncology might have to offer.- -Otherwise, he denies fever or chills, chest pain or palpitations,abdominal pain , nausea or vomiting, diarrhea or constipation. -the patient would still like to consider returning home, but his says he has his disease is often enough that she feels he is at high riskto fall again, and she does not want to have to deal with that at home. exam: he is sitting up in bed, eating breakfast, and is in no acute distress. He is alert and pleasant. Neck is supple without obvious JVD. Cardiac exam shows regular rate and rhythm. Lung exam shows somewhat decreased breath sounds, but otherwise clear. Abdomen is soft and nontender. Extremities; shows trace edema. Neurologic exam: Is grossly nonfocal. assessment and plan #1.Fall.-Patient who presents with acute on chronic renal failure and probable dehydration dizziness and fall with head trauma. he was recently diagnosed with metastatic cancer and the family is requesting no further aggressive interventions. -he has received IV fluids. But we are no longer following labs. -he is afraid to take him home if he will fall again, so the plan is for him to go to rehabilitation to see if he can have some strengthening. We had a long discussion about how being dehydrated is making his dizziness worse, and that he should really should consider pushing himself to drink at least 6-8 glasses of fluids per day. #2. COPD. -when necessary albuterol. #3. Coronary artery disease. -the patient did present with elevated troponin, but also renal failure, which makes this less sensitive. He did not want any further cardiac evaluation. -continue aspirin, Coreg, isosorbide , pravastatin. #4. Oncology. -Recent diagnosis of metastatic lung cancer. I had a fairly prolonged discussion with the patient and his ,and explained that they may want to at least meet with an oncologist just to see if there are any options for palliative care. After discussing, the thinks she would like to meet with an oncologist for a consult at some point. #5. Disposition: Social work is discussing possible hospice referral with the patient and family. It sounds like they would like him to go to rehabilitation to see if he can get stronger. And then reconsider, returning home with hospice. #6. Acute renal failure with severe uremia. His declining aggressive management of this. #8. BPH. Continue Proscar and terazosin. #9. Gout. I have cut his allopurinol dose down, given his renal failure. this visit took approximately 35 minutes today,to meet with the patient and his , examine him, review plan of care with our multidisciplinary team, and write orders. Discharge diagnosis: fall with head laceration,dehydration with acute renal failure, lung cancer - Time Spent with Patient Total time spent providing and/or coordinating discharge services: Greater than 30 minutes Medical - DS: Exam - Constitutional Vitals: Vital Signs Temp Pulse Pulse Resp BP BP Pulse Ox 09/16/16 07:37 93 09/16/16 07:36 86 12 93 09/16/16 07:05 97.8 F 88 24 H 127/59 96 09/15/16 23:05 98.3 F 87 22 119/72 94 09/15/16 19:33 97.4 F 90 24 H 106/59 96 09/15/16 16:00 97.6 F 79 18 164/74 2 L 09/15/16 12:00 97.7 F 85 18 123/70 98 09/15/16 11:12 97 Intake and Output 09/15/16 09/16/16 09/16/16 21:59 05:59 13:59 Intake Total 200 / 200 400 / 400 Output Total 550 / 550 201 / 201 150 / 150 Balance -350 / -350 199 / 199 -150 / -150 Intake: Oral 200 / 200 400 / 400 Output: Void Amount 550 / 550 200 / 200 150 / 150 # of times incontinent of 1 / 1 urine Other: # Bowel Movements 1 Weight 215 lb 8 oz Medical - DS: Data Labs on day of discharge: 09/11/16 23:30 Labs: Initial CBC from September 11, showed white blood cell count of 19,000, hematocrit 32 , RDW 17, 9000 granulocytes. Chemistry panel showed elevated BUN 104, with creatinine of 2.6, ionized calcium of 1.46 Troponin was elevated at 0.28 EKG showed sinus rhythm at a rate of [address] showed no acute intracranial disease. Medical - DS: A/P - Patient/Caregiver Discharge Instructions Activity: ambulate only with your walker, as per physical therapy Diet: Renal Other Amb Orders: Home Oxygen Order Location: Determined By Patient Physical Therapy at Discharge - General Location: Determined By Patient - Follow up Plan Follow up with: Lupe Marie MD [Primary Care Provider] - Disposition: Xfer SNF Prognosis: Serious Rehab Potential: Serious I certify that the patient requires SNF services: Yes Overall status at discharge: patient is progressing back to baseline Medical - DS: Qual - VTE Deep Vein Thrombosis/Pulmonary Embolism Present on Admission: No
[2016-09-16] MEDS: TIOTROPIUM BROMIDE 18 MCG INHALANT INH SCH (10:56)
== END 2016-09-16 10:38 | DRG 181 ==
LOC: ED 22:54 → MEDSUR 22:54 → SUATTDRO 09-12 14:27 → MEDSUR 09-13 09:28
PROVIDERS: ADMIT Internal Medicine; ATTEND Internal Medicine